=== PATIENT | male | born 1955 | race Caucasian/White ===

== ENCOUNTER 2023-12-02 20:17 | Emergency (ER) | payer OTHER ==
[~2023-12-02] VITALS: Ht 182.9 cm; Wt 76.2 kg
[2023-12-02 20:45] VITALS: BP 141/92
[2023-12-02] MEDS ORDERED: Fluorescein Sod 1MG Opth Strips RIGHTEYE ONE (21:25)
[2023-12-02] MEDS ORDERED: Erythromycin 0.5% Opth Oint 1 gm RIGHTEYE ONE (22:05)
[2023-12-02] MEDS ORDERED: Ofloxacin 0.3% Opth Soln 5 ML RIGHTEYE ONE (22:05)
[2023-12-02] MEDS ORDERED: ERYT1OIN RIGHTEYE (22:08)
[2023-12-02] MEDS ORDERED: OCUFLOX510 RIGHTEYE (22:08)
[2023-12-02] MEDS ORDERED: Erythromycin 0.5% Opth Oint 3.5 gm RIGHTEYE ONE (22:10)
[2023-12-02] MEDS ORDERED: ALLO300 PO (22:30)
[2023-12-02] MEDS ORDERED: ATORVASTATIN CA20 MG PO (22:31)
[2023-12-02] MEDS ORDERED: TRAZ50 PO (22:36)
== END 2023-12-02 22:37 | disposition home or self-care (01) ==
LOC: ER 20:17
DX: S05.01XA Injury of conjunctiva and corneal abrasion without foreign body, right eye, initial encounter (principal); E78.5 Hyperlipidemia, unspecified; W26.8XXA Contact with other sharp object(s), not elsewhere classified, initial encounter; Z79.899 Other long term (current) drug therapy
CPT/HCPCS: 99282; A9270